=== PATIENT | male | born 1970 | race Two or more races ===

== ENCOUNTER 2017-11-06 02:45 | Emergency (ER) | payer SELFPAY ==
[2017-11-06] MEDS ORDERED: ASPIRIN 81 MG TABLET, CHEWABLE PO ONE (02:58)
[2017-11-06] MEDS ORDERED: AMIODARONE HCL INJ 150 MG/3 ML VIAL IV ONE (03:13)
[2017-11-06] MEDS ORDERED: ETOMIDATE INJ/PF 20 MG/10 ML SDV IV ONE (03:20)
[2017-11-06] MEDS ORDERED: MAGNESIUM SULFATE/D5W 2 GM/200 ML RTUPB IV ONE (03:30)
--- NOTE | 2017-11-06 03:36 | ER Document Report ---
ED General - General Chief Complaint: Chest Pain Stated Complaint: PACEMAKER FIRED Time Seen by Provider: 11/06/17 02:57 Notes: Patient is a 46-year-old male who presents with complaint of feeling his heart is racing. He says he has a history of arrhythmia. He has a pacemaker defibrillator in place. Patient says he has been shocked several times tonight. He therefore place a magnet over his chest. He says in the past he will be shocked over and over again but not convert until he receives medications. He just moved here 1 month ago from [place]. He says that he is on insulin for diabetes as well as blood pressure medication cholesterol medication. He says the medication he takes for his heart rhythm is bisoprolol. He says he is out of all of his medications except for the bisoprolol. He denies any recent fevers or infections. He had his pacemaker changed in May 2017. He is last heart cath was in 2012. His last attempt at ablation was in the spring 2016. He says ablation did not work. He has not established himself with a doctor in this area since moving here. He denies chest pain. His previous heart cath in 2012 showed no evidence of coronary disease. TRAVEL OUTSIDE OF THE U.S. IN LAST 30 DAYS: No - Related Data Allergies/Adverse Reactions: No Known Allergies Allergy (Unverified 11/06/17 02:50) Past Medical History - Social History Smoking Status: Unknown if Ever Smoked Frequency of alcohol use: None Drug Abuse: None Family History: Reviewed & Not Pertinent Review of Systems - Review of Systems Notes: My Normal Review Basic REVIEW OF SYSTEMS: CONSTITUTIONAL : Denies fever, chills, or sweats. Denies recent illness. EENT: Denies eye, ear, throat, or mouth pain or symptoms. Denies nasal or sinus congestion. CARDIOVASCULAR: Denies chest pain. RESPIRATORY: Denies cough, cold, or chest congestion. Denies shortness of breath, difficulty breathing, or wheezing. GASTROINTESTINAL: Denies abdominal pain. Denies nausea, vomiting, or diarrhea. Denies constipation. Last BM: GENITOURINARY: Denies difficulty urinating, painful urination, burning, frequency, or blood in urine. FEMALE GENITOURINARY: Denies vaginal bleeding, abnormal or irregular periods. LMP: MUSCULOSKELETAL: Denies neck or back pain or joint pain or swelling. SKIN: Denies rash or skin lesions. HEMATOLOGIC : Denies easy bruising or bleeding. LYMPHATIC: Denies swollen, enlarged glands. NEUROLOGICAL: Denies altered mental status or loss of consciousness. Denies headache. Denies weakness or paralysis or loss of use of either side. Denies problems with gait or speech. Denies sensory or motor loss. PSYCHIATRIC: Denies anxiety or stress or depression. ALL OTHER SYSTEMS REVIEWED AND NEGATIVE. Physical Exam - Vital signs Vitals: Pulse Ox 98 11/06/17 02:47 Course - Re-evaluation Re-evalutation: 11/06/17 03:34 Patient came in with wide-complex tachycardia. I did look through his records and some his records say he has SVT with aberrancy due to right bundle branch block. 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 He does have an AICD. He says it was viral and Therefore Pl., Albert on it. He refuses to allow us to take the mag and off. I informed him that he is in wide complex tachycardia with a rate around 200 and that this could be detrimental to his health and cause heart attack because restraint on his heart causing going to a further arrhythmia that does not have a perfusing pulse. Patient says he understands this but still refuses to take off the magnet and says that in the past either receives amiodarone or lidocaine and this usually stops his arrhythmia. He refuses to allow me to cardiovert him. I give the patient 150 mg of amiodarone. I then placed him on 1 mg/min drip. After the 150 mg bolus patient is still in wide-complex tachycardia. I informed patient that I would like to try cardioversion. Patient again was very resistant against this. I told him that I would sedate him for this. Patient is still resistant but eventually agreed to allow me to sedate him. I did sedate him with etomidate. I did remove the magnet. He was shocked. After being shocked he has about 4-5 normal beats and then goes right back into wide-complex tachycardia. Patient is awake now and does not want any further shocks at this time. I will give magnesium sulfate. If after the magnesium sulfate he does not have conversion then I will consult cardiology for further advice. Patient does not have chest pain. He says he feels okay. He says that he has no further concerns at this time. On exam he looks well his blood pressure is normal. His pulse to palpation is in the 90s. His heart rates in the 200s. 11/06/17 03:50 Patient is receiving magnesium. Heart rate is still around 190 and wide- complex tachycardia. Blood pressure still normal. I did speak with Dr. Holden informed him of the patient's history and the medications we have given him. He recommends I do give the patient a bolus of lidocaine. He says after that he suggested I call [facility] and try to transfer. 11/06/17 04:07 After the lidocaine bolus patient's heart rate is now in the 60s and the paced rhythm. His blood sugar on Accu-Chek is 599. I will place him on insulin drip until I see what his other results come back as. 11/06/17 04:47 I have called [facility], [facility], and [facility]. They are all on MedSurg diversion. [facility] says he could potentially put me on a wait list but they said it is not clear when they would ever have a bed available. I spoke with [facility], Dr. Josemanuel Altman. They seem to have the most promise intransfer and said they will accept the patient. They said the patient 's transfer might be delayed for a while until beds available but they have accepted the patient. I did call back Dr. Holden and informed him that the patient did convert but requested that he also evaluate the patient in consult being that the patient will most likely be in the ER for some time before he is able to be transferred. Dr. Holden is agreeable to this. 11/06/17 06:41 Patient's blood sugar continues to be trending down appropriately. He is not in DKA even though he does have some metabolic acidosis. I say he is not in DKA because he does not have a gap acidosis. I am using insulin drip just to slowly bring down his blood sugar. Once his blood sugars below 300. And some drip and that his blood sugars can be controlled with his Lantus. If his bed becomes available at [facility] we can stop the insulin drip at that time and just to subcu insulin which will be appropriate. The patient's rhythm remained stable at this time. I am awaiting Dr. Holden to come evaluate the patient this morning. Will base further antiarrhythmics of his recommendations. Patient is currently still on the amiodarone drip. The 6 hour infusion will be completed at 9:30 AM. - Vital Signs Vital signs: Temp Pulse Resp BP Pulse Ox 16 112/87 H 99 11/06/17 06:01 11/06/17 06:00 11/06/17 06:01 - Laboratory Result Diagrams: 11/06/17 03:30 11/06/17 03:30 Laboratory results interpreted by me: 11/06/17 11/06/17 11/06/17 03:30 03:30 05:33 MCH 26.9 L Sodium 129.9 L Carbon Dioxide 16 L Glucose 567 H* POC Glucose 474 H* Direct Bilirubin 0.6 H Alkaline Phosphatase 131 H - EKG Interpretation by Me Additional EKG results interpreted by me: 11/06/17 04:22 EKG is reviewed and interpreted by me. This EKG is post cardioversion for lidocaine. EKG shows neutral rhythm with rate of 96 bpm. Patient does have a wide-complex rhythm related to what appears to be right bundle branch block. I do not have an old EKG for comparison but I do have description of previous EKG on the patient's discharge summary which also describes right bundle branch block type pattern on his previous EKGs. W[place] interval is within normal range. QRS duration QTc intervals are prolonged. Procedures - Conscious Sedation procedural Prior complications: Procedural sedation Emergent conditions applies.: E. - ASA Classification Airway Evaluation: Normal anatomy Mallampati Classification: Class 1 Used during procedure: Suction available, IV access obtained, Pulse ox on pt., hand candle molder on pt. Medications administered: Etomidate Reversal agents: None I personally performed/intraservice time: Sedation, 30 min or less Complications: No Notes: Patient was given a total of 10 mg of etomidate for sedation for attempted cardioversion. Critical Care Note - Critical Care Note Total time excluding time spent on procedures (mins): 45 Comments: Critical care time for this patient is partly 45 minutes due to he being continuously bedside attempting to convert the patient from flex tachycardia as well as time spent speaking with training and development project leader. Discharge - Discharge Clinical Impression: Wide-complex tachycardia, Hyperglycemia Condition: Stable Disposition: [facility]
[2017-11-06 03:52] LABS: INTERNATIONAL RATION (INR) 0.83
[2017-11-06 03:54] LABS: ABSOLUTE BASOPHILS # (AUTO) 0.1 10^3/uL (0.0-0.2); ABSOLUTE EOSINOPHILS # (AUTO) 0.1 10^3/uL (0.0-0.6); ABSOLUTE LYMPHOCYTES (AUTO) 1.2 10^3/uL (0.5-4.7); ABSOLUTE MONOCYTES (AUTO) 0.4 10^3/uL (0.1-1.4); ABSOLUTE NEUT (AUTO) 2.7 10^3/uL (1.7-8.2); ALANINE AMINOTRANSFERASE 33 U/L (21-72); ALBUMIN 3.8 g/dL (3.5-5.0); ALKALINE PHOSPHATASE 131 U/L (38-126); ANION GAP 16 (5-19); ASPARTATE AMINO TRANSFERASE 19 U/L (17-59); BASOPHILS % (AUTO) 1.5 % (0-2); BILIRUBIN,DIRECT 0.6 mg/dL (0.0-0.4); BILIRUBIN,TOTAL 0.8 mg/dL (0.2-1.3); BLOOD UREA NITROGEN 10 mg/dL (7-20); CALCIUM 8.9 mg/dL (8.4-10.2); CARBON DIOXIDE 16 mmol/L (22-30); CHLORIDE 98 mmol/L (98-107); CREATINE KINASE 65 U/L (55-170); EOSINOPHILS % (AUTO) 2.8 % (0-6); HEMATOCRIT 43.5 % (37.9-51.0); MAGNESIUM 1.6 mg/dL (1.6-2.3); MEAN CORPUSCULAR VOLUME 80 fl (80-97); PLATELET COUNT 241 10^3/uL (150-450); POTASSIUM 4.1 mmol/L (3.6-5.0); RED BLOOD COUNT 5.43 10^6/uL (4.35-5.55); SEGMENTED NEUTROPHILS % (AUTO) 59.7 % (42-78); SODIUM 129.9 mmol/L (137-145); TOTAL CELLS COUNTED % (AUTO) 100 %; TOTAL PROTEIN 6.8 g/dL (6.3-8.2); WHITE BLOOD COUNT 4.6 10^3/uL (4.0-10.5)
[2017-11-06] MEDS ORDERED: LIDOCAINE 2% INJ-PF (100 MG/5 ML) SYRINGE ONE (03:54)
[2017-11-06] MEDS ORDERED: LIDOCAINE 2% INJ-PF (100 MG/5 ML) SYRINGE IV ONE (03:56)
[2017-11-06 04:07] LABS: HEMOGLOBIN 14.6 g/dL (13.5-17.0); MEAN CORPUSCULAR HEMOGLOBIN 26.9 pg (27.0-33.4); MEAN CORPUSCULAR HGB CONC 33.6 g/dL (32.0-36.0)
[2017-11-06] MEDS ORDERED: NORMAL SALINE 100 ML with INSULIN REGULAR, HUMAN 100 UNIT IV PRN ×2 (04:08)
[2017-11-06] MEDS ORDERED: DEXTROSE 40% GEL 15 GM TUBE PO PRN ×2 (04:08)
[2017-11-06] MEDS ORDERED: GLUCAGON,HUMAN RECOMB 1 MG INJ IM PRN (04:08)
[2017-11-06] MEDS ORDERED: DEXTROSE 50%-WATER 25 GM/50 ML DISP.SYRIN IV PRN ×2 (04:08)
--- NOTE | 2017-11-06 04:20 | RADIOLOGY REPORT (SQ) ---
EXAM DESCRIPTION: CHEST SINGLE VIEW COMPLETED DATE/TIME: 11/06/2017 4:10 am REASON FOR STUDY: CP COMPARISON: None. EXAM PARAMETERS: NUMBER OF VIEWS: One view. TECHNIQUE: Single frontal radiographic view of the chest acquired. RADIATION DOSE: NA LIMITATIONS: Superimposed monitoring devices/ pacemaker pads on the patient's chest. FINDINGS: LUNGS AND PLEURA: No consolidation, pleural effusion or pneumothorax at the visualized amanda gs. MEDIASTINUM AND HILAR STRUCTURES: No masses. Contour normal. HEART AND VASCULAR STRUCTURES: The heart is upper normal limit in size. No overt vascular congestion . BONES: No acute findings. HARDWARE: There is a left-sided pacemaker. Pacemaker pads are overlying the patient's chest. IMPRESSION: No acute radiographic finding in the visualized chest. TECHNICAL DOCUMENTATION: JOB ID: [id number] [employer]- All Rights Reserved
[2017-11-06] MEDS ORDERED: INSULIN LISPRO 100 UNIT/ML 3 ML VIAL SUBCUT ONE (04:30)
[2017-11-06 04:31] LABS: GLUCOSE 567 mg/dL (75-110)
[2017-11-06] MEDS ORDERED: INSULIN REG, HUMAN 100 UNIT/ML 3 ML VIAL (PYX) ONE (04:34)
[2017-11-06] MEDS ORDERED: NORMAL SALINE 500 ML IV ONE (04:39)
[2017-11-06 04:59] LABS: CREATINE KINASE MB 1.92 ng/mL (<4.55); TROPONIN I 0.015 ng/mL
--- NOTE | 2017-11-06 07:29 | EKG REPORT ---
SEVERITY:- ABNORMAL ECG - EXTREME TACHYCARDIA WITH WIDE COMPLEX, NO FURTHER RHYTHM ANALYSIS ATTEMPTED : Confirmed by: Kishan Castillo MD 06-Nov-2017 07:28:11
--- NOTE | 2017-11-06 07:29 | EKG REPORT ---
SEVERITY:- ABNORMAL ECG - ECTOPIC ATRIAL RHYTHM RIGHT BUNDLE BRANCH BLOCK : Confirmed by: Kishan Castillo MD 06-Nov-2017 07:27:46
--- NOTE | 2017-11-06 08:01 | ER Document Report ---
Doctor's Note Notes: 11/06/17 08:01 Transport is available at this time. Vital signs are stable. Patient stable at this time for immediate transfer.
[2017-11-06 09:45] VITALS: BP 116/90
[2017-11-06] MEDS ORDERED: FUROSEMIDE 20 MG TABLET PO SCH (10:00)
[2017-11-06] MEDS ORDERED: LISINOPRIL 10 MG TABLET PO SCH (10:00)
[2017-11-06] MEDS ORDERED: ATORVASTATIN CALCIUM 20 MG TABLET PO SCH (10:00)
[2017-11-06] MEDS ORDERED: INSULIN DETEMIR 100 UNIT/ML 3 ML PEN SUBCUT SCH (18:00)
== END 2017-11-06 08:20 | disposition short-term general hospital (02) ==
LOC: ER 02:45
PROC: 5A2204Z Restoration of Cardiac Rhythm, Single (ICD-10-PCS; principal; 2017-11-06)
DX: R00.0 Tachycardia, unspecified (principal); E11.65 Type 2 diabetes mellitus with hyperglycemia; R07.9 Chest pain, unspecified; I10 Essential (primary) hypertension; Z79.4 Long term (current) use of insulin; Z79.899 Other long term (current) drug therapy
CPT/HCPCS: 92960; 93005; 99291; 96361; 96375; 96365; 36415; 82553; 82962; 82550; 83735; 85025; 85610; 80053; 84484; 71045; 93010; J2001; J3475; J1815; J7040; J3490; J0282

== ENCOUNTER 2018-03-10 18:49 | Emergency (ER) | payer SELFPAY ==
--- NOTE | 2018-03-10 19:02 | ER Document Report ---
ED General - General Mode of Arrival: Medic Information source: Patient TRAVEL OUTSIDE OF THE U.S. IN LAST 30 DAYS: No <SARAI DAVIS - Last Filed: 03/10/18 22:10> <SUSU PATRICK - Last Filed: 03/11/18 03:07> - General Stated Complaint: IRREGULAR HEARTBEAT Notes: 47 y.o male with HTN, DM and a Hx of cardiac ablation and pacemaker defibrillator placement presents to the ED anxiety and a beeping defibrillator. Pt reports that he has had a pacemaker since 2012 which was originally placed in [place] and then replaced in May 2017 by his doctor in [place]. Pt was seen here in November this year for his pacemaker firing and then was seen in [place] by a qa test lead. Pt has since been placed on DM medications by his doctor in [place] and pt reports that he has been taking his DM medications as prescribed. Pt reports that his defribillator has made two long beeps today but did not shock him. He states that before the defibrillator beeped he started to get some anxiety and his heart was racing which usually happens before he gets shocked. Pt has no further complaints at this time, he denies any other sx including CP. Pt does not have a PCP. (SARAI DAVIS) - Related Data Allergies/Adverse Reactions: No Known Allergies Allergy (Verified 03/10/18 19:06) Past Medical History - General Information source: Patient - Social History Family History: Reviewed & Not Pertinent - Past Medical History Cardiac Medical History: Reports: Hx Hypertension, Other - Cardiac ablation Endocrine Medical History: Reports: Hx Diabetes Mellitus Type 2 Renal/ Medical History: Denies: Hx Peritoneal Dialysis Past Surgical History: Reports: Hx Cardiac Catheterization - 2012, Hx Pacemaker - defibrillator, Other - Cardiac ablation <SARAI DAVIS - Last Filed: 03/10/18 22:10> - Social History Smoking Status: Unknown if Ever Smoked <SUSU PATRICK - Last Filed: 03/11/18 03:07> Review of Systems - Review of Systems Constitutional: No symptoms reported EENT: No symptoms reported Cardiovascular: See HPI, Heart racing, Other - pacemaker firing. denies: Chest pain Respiratory: No symptoms reported Gastrointestinal: No symptoms reported Genitourinary: No symptoms reported Male Genitourinary: No symptoms reported Musculoskeletal: No symptoms reported Skin: No symptoms reported Hematologic/Lymphatic: No symptoms reported Neurological/Psychological: See HPI, Anxiety -: Yes All other systems reviewed and negative <SARAI DAVIS - Last Filed: 03/10/18 22:10> Physical Exam <SARAI DAVIS - Last Filed: 03/10/18 22:10> <SUSU PATRICK - Last Filed: 03/11/18 03:07> - Vital signs Vitals: Resp Pulse Ox 17 96 03/10/18 18:53 03/10/18 18:53 - Notes Notes: Physical Exam: General: Alert, appears well. HEENT: Normocephalic. Atraumatic. PERRL. Extraocular movements intact. Oropharynx clear. Neck: Supple. Non-tender. Respiratory: No respiratory distress. Clear and equal breath sounds bilaterally. Cardiovascular: Magnet over defibrillator. Abdominal: Normal Inspection. Non-tender. No distension. Normal Bowel Sounds. Back: Non-tender. No deformity or step off. Extremities: Moves all four extremities. Upper extremities: Normal inspection. Normal ROM. Lower extremities: Normal inspection. No edema. Normal ROM. Neurological: Normal cognition. AAOx3. Normal speech. Psychological: Normal affect. Normal Mood. Skin: Warm. Dry. Normal color. (SARAI DAVIS) Course - Laboratory Result Diagrams: 03/10/18 18:53 03/10/18 18:53 <SARAI DAVIS - Last Filed: 03/10/18 22:10> - Laboratory Result Diagrams: 03/10/18 18:53 03/10/18 18:53 <SUSU PATRICK - Last Filed: 03/11/18 03:07> - Re-evaluation Re-evalutation: 03/10/18 19:33 Talked with [employer] concerning defibrillator 03/10/18 21:41 Called [facility]. (SARAI DAVIS) Patient is a 47-year-old male who came in because his pacemaker defibrillator was beeping. Pacemaker was interrogated with no events and no concerns. Patient has been in a sinus rhythm not paced since he has been in the emergency department. Blood work including troponin 2 is negative. Discussed with cardiology, Dr. Moreno at [facility] who agrees the patient is stable at this time to go home. Patient would like to go home. Return if any further concerns. Stable for discharge. (SUSU PATRICK) - Vital Signs Vital signs: Temp Pulse Resp BP Pulse Ox 98.4 F 11 L 136/86 H 94 03/11/18 00:01 03/11/18 00:01 03/11/18 00:01 03/11/18 00:01 - Laboratory Laboratory results interpreted by me: 03/10/18 03/10/18 18:53 18:53 MCV 79 L RDW 14.8 H Glucose 202 H Discharge <SARAI DAVIS - Last Filed: 03/10/18 22:10> <SUSU PATRICK - Last Filed: 03/11/18 03:07> - Discharge Clinical Impression: Encounter for interrogation of cardiac pacemaker Condition: Stable Disposition: HOME, SELF-CARE Instructions: Pacemaker Evaluation ([facility]) Additional Instructions: Please follow-up with your qa test lead as scheduled this week. Lianeibe Attestation: 03/11/18 03:07 I personally performed the services described in the documentation, reviewed and edited the documentation which was dictated to the scribe in my presence, and it accurately records my words and actions. (SUSU PATRICK) Scribe Documentation - Scribe Written by Jacques:: Jacques Chau 03/10/[id number] acting as scribe for :: Chloe <SARAI DAVIS - Last Filed: 03/10/18 22:10>
[2018-03-10 19:19] LABS: INTERNATIONAL RATION (INR) 0.94
[2018-03-10 19:30] LABS: ALANINE AMINOTRANSFERASE 35 U/L (21-72); ALBUMIN 4.2 g/dL (3.5-5.0); ALKALINE PHOSPHATASE 66 U/L (38-126); ANION GAP 9 (5-19); ASPARTATE AMINO TRANSFERASE 25 U/L (17-59); BILIRUBIN,DIRECT 0.4 mg/dL (0.0-0.4); BILIRUBIN,TOTAL 0.6 mg/dL (0.2-1.3); BLOOD UREA NITROGEN 19 mg/dL (7-20); CALCIUM 9.6 mg/dL (8.4-10.2); CARBON DIOXIDE 29 mmol/L (22-30); CHLORIDE 102 mmol/L (98-107); CREATINE KINASE 156 U/L (55-170); GLUCOSE 202 mg/dL (75-110); POTASSIUM 4.8 mmol/L (3.6-5.0); SODIUM 140.2 mmol/L (137-145); TOTAL PROTEIN 6.9 g/dL (6.3-8.2)
--- NOTE | 2018-03-10 19:30 | RADIOLOGY REPORT (SQ) ---
EXAM DESCRIPTION: CHEST SINGLE VIEW COMPLETED DATE/TIME: 03/10/2018 7:24 pm REASON FOR STUDY: CP COMPARISON: 11/06/2017 EXAM PARAMETERS: NUMBER OF VIEWS: One view. TECHNIQUE: Single frontal radiographic view of the chest acquired. RADIATION DOSE: NA LIMITATIONS: None. FINDINGS: LUNGS AND PLEURA: No new opacities, masses or pneumothorax. No pleural effusion. MEDIASTINUM AND HILAR STRUCTURES: No masses. Contour normal. HEART AND VASCULAR STRUCTURES: Heart stable in size. Normal vasculature. BONES: No acute findings. HARDWARE: Stable. OTHER: No other significant finding. IMPRESSION: NO ACUTE RADIOGRAPHIC FINDING IN THE CHEST. NO SIGNIFICANT CHANGE FROM PRIOR STUDY. TECHNICAL DOCUMENTATION: JOB ID: [id number] [employer]- All Rights Reserved Reading location - IP/workstation name: [email or web address]
[2018-03-10 19:31] LABS: HEMATOCRIT 41.3 % (37.9-51.0); HEMOGLOBIN 14.8 g/dL (13.5-17.0); MEAN CORPUSCULAR HEMOGLOBIN 28.2 pg (27.0-33.4); MEAN CORPUSCULAR HGB CONC 35.9 g/dL (32.0-36.0); MEAN CORPUSCULAR VOLUME 79 fl (80-97); PLATELET COUNT 239 10^3/uL (150-450); RED BLOOD COUNT 5.26 10^6/uL (4.35-5.55); RED CELL DISTRIBUTION WIDTH 14.8 % (11.5-14.0); WHITE BLOOD COUNT 5.7 10^3/uL (4.0-10.5)
[2018-03-10 19:42] LABS: CREATINE KINASE MB 2.68 ng/mL (<4.55); TROPONIN I < 0.012 ng/mL
[2018-03-10 19:54] LABS: ABSOLUTE LYMPHOCYTES# (MANUAL) 1.5 10^3/uL (0.5-4.7); ABSOLUTE MONOCYTES # (MANUAL) 0.6 10^3/uL (0.1-1.4); ABSOLUTE NEUTROPHILS# (MANUAL) 3.4 10^3/uL (1.7-8.2); BASOPHILS % (MANUAL) 0 % (0-2); EOSINOPHILS % (MANUAL) 3 % (0-6); LYMPHOCYTES % (MANUAL) 27 % (13-45); MONOCYTES % (MANUAL) 11 % (3-13); SEGMENTED NEUTROPHILS % (MAN) 59 % (42-78); TOTAL CELLS COUNTED 100
[2018-03-10 19:55] LABS: ANISOCYTOSIS SLIGHT; PLATELET COMMENT ADEQUATE; TOXIC GRANULATION SLIGHT
[2018-03-11 00:26] VITALS: BP 136/86
--- NOTE | 2018-03-11 08:14 | EKG REPORT ---
SEVERITY:- ABNORMAL ECG - SINUS RHYTHM FIRST DEGREE AV BLOCK LEFT BUNDLE BRANCH BLOCK : Confirmed by: Lakeshia Saenz MD 11-Mar-2018 08:13:49
== END 2018-03-11 00:26 | disposition home or self-care (01) ==
LOC: ER 18:49
DX: Z45.018 Encounter for adjustment and management of other part of cardiac pacemaker (principal); F41.9 Anxiety disorder, unspecified; E11.9 Type 2 diabetes mellitus without complications; I10 Essential (primary) hypertension; Z79.899 Other long term (current) drug therapy
CPT/HCPCS: 36415; 71045; 80053; 82550; 82553; 84484; 85025; 85610; 93005; 93010; 99285

== ENCOUNTER 2019-11-15 20:07 | Emergency (ER) | payer SELFPAY ==
[2019-11-15 21:02] LABS: ABSOLUTE EOSINOPHILS # (AUTO) 0.3 10^3/uL (0.0-0.6); ABSOLUTE LYMPHOCYTES (AUTO) 1.1 10^3/uL (0.5-4.7); ABSOLUTE MONOCYTES (AUTO) 0.4 10^3/uL (0.1-1.4); ABSOLUTE NEUT (AUTO) 3.6 10^3/uL (1.7-8.2); BASOPHILS % (AUTO) 0.7 % (0-2); EOSINOPHILS % (AUTO) 4.7 % (0-6); HEMATOCRIT 42.2 % (37.9-51.0); HEMOGLOBIN 14.9 g/dL (13.5-17.0); LYMPHOCYTES % (AUTO) 20.1 % (13-45); MEAN CORPUSCULAR HGB CONC 35.3 g/dL (32.0-36.0); MEAN CORPUSCULAR VOLUME 79 fl (80-97); MONOCYTES % (AUTO) 8.1 % (3-13); PLATELET COUNT 196 10^3/uL (150-450); RED BLOOD COUNT 5.33 10^6/uL (4.35-5.55); RED CELL DISTRIBUTION WIDTH 15.1 % (11.5-14.0); SEGMENTED NEUTROPHILS % (AUTO) 66.4 % (42-78); TOTAL CELLS COUNTED % (AUTO) 100 %; WHITE BLOOD COUNT 5.4 10^3/uL (4.0-10.5)
[2019-11-15 21:17] LABS: ALBUMIN 4.2 g/dL (3.5-5.0); ALKALINE PHOSPHATASE 114 U/L (38-126); ANION GAP 13 (5-19); ASPARTATE AMINO TRANSFERASE 27 U/L (17-59); BILIRUBIN,DIRECT 0.2 mg/dL (0.0-0.4); BILIRUBIN,TOTAL 1.1 mg/dL (0.2-1.3); BLOOD UREA NITROGEN 17 mg/dL (7-20); CALCIUM 9.3 mg/dL (8.4-10.2); CARBON DIOXIDE 24 mmol/L (22-30); CHLORIDE 98 mmol/L (98-107); CREATINE KINASE 68 U/L (55-170); POTASSIUM 4.7 mmol/L (3.6-5.0); TOTAL PROTEIN 7.1 g/dL (6.3-8.2)
[2019-11-15 21:28] LABS: CREATINE KINASE MB 2.19 ng/mL (<4.55)
--- NOTE | 2019-11-15 21:32 | RADIOLOGY REPORT (SQ) ---
EXAM DESCRIPTION: [employer]: XR CHEST 1 VIEW CLINICAL HISTORY: 48 years Male; cp; COMPARISON: 03/10/2018 FINDINGS: Lungs are clear, with no focal infiltrate, pneumothorax, or pleural effusion. AICD remains in place with intact leads. Mediastinum is unchanged. No shift or widening. Bony structures are unremarkable. IMPRESSION: 1. No acute pulmonary findings. 2. AICD
[2019-11-15 21:35] LABS: GLUCOSE 416 mg/dL (75-110)
[2019-11-15 21:36] LABS: TROPONIN I < 0.012 ng/mL
[2019-11-15] MEDS ORDERED: NORMAL SALINE 1000 ML 1,000 ML IV ONE (21:37)
[2019-11-15] MEDS ORDERED: INSULIN REG, HUMAN 100 UNIT/ML 3 ML VIAL (PYX) IV ONE (21:38)
[2019-11-15] MEDS ORDERED: VANCOMYCIN HCL INJ 1000 MG VIAL IV ONE (21:42)
[2019-11-15] MEDS ORDERED: CEFEPIME 2 GM/D5W RTU 2 GM/50 ML RTUPB IV ONE (21:42)
[2019-11-15] MEDS ORDERED: DEXTROSE 5%-WATER 500 ML with AMIODARONE HCL 900 MG IV PRN ×2 (21:57)
[2019-11-15] MEDS ORDERED: AMIODARONE HCL INJ 150 MG/3 ML VIAL IV ONE (22:13)
--- NOTE | 2019-11-15 22:19 | ER Document Report ---
ED Cardiac - General Chief Complaint: Chest Pain Stated Complaint: POSSIBLE V TACH Time Seen by Provider: 11/15/19 21:01 Primary Care Provider: TOMAS TRUJILLO MD [Primary Care Provider] - Follow up as needed Mode of Arrival: Medic Information source: Patient TRAVEL OUTSIDE OF THE U.S. IN LAST 30 DAYS: No - HPI Notes: Patient presents tonight by ambulance after an episode of an arrhythmia. Patient states that several times throughout the day he felt "dizzy". And had some palpitations. He states that while washing dishes he was feeling his "heart flutter" and received a shock. He states he then used a magnet to turn off his defibrillator and called the ambulance. The ambulance crew state they found the patient with a heart rate of approximately 220 and that they started amiodarone and had the patient do a Valsalva and that the patient converted to a sinus rhythm. The patient also states after he was shocked he had some chest pain that was on the left side. It was moderate. He does not usually get this pain after being shocked. It lasted until he was given nitroglycerin by the paramedics and then it went away. He had no shortness of breath nausea or vomiting tonight. He states he currently has no pain. This pain did not radiate. - Related Data Allergies/Adverse Reactions: No Known Allergies Allergy (Verified 03/10/18 19:06) Past Medical History - General Information source: Patient - Social History Smoking Status: Former Smoker Frequency of alcohol use: None Drug Abuse: None Family History: Reviewed & Not Pertinent Patient has suicidal ideation: No Patient has homicidal ideation: No - Past Medical History Cardiac Medical History: Reports: Hx Congestive Heart Failure, Hx H ypercholesterolemia, Hx Hypertension Endocrine Medical History: Reports: Hx Diabetes Mellitus Type 2 Renal/ Medical History: Denies: Hx Peritoneal Dialysis Past Surgical History: Reports: Hx Cardiac Catheterization - 2012, Hx Cardiac Surgery - pacemaker/defib, Hx Pacemaker - defibrillator, Other - Cardiac ablation Review of Systems - Review of Systems Constitutional: denies: Chills, Fever Cardiovascular: Chest pain, Palpitations Respiratory: denies: Cough, Wheezing -: Yes All other systems reviewed and negative Physical Exam - Vital signs Vitals: Resp Pulse Ox 20 94 11/15/19 20:11 11/15/19 20:11 Interpretation: Normal - General General appearance: Appears well, Alert - HEENT Head: Normocephalic, Atraumatic Eyes: Normal Pupils: PERRL - Respiratory Respiratory status: No respiratory distress Chest status: Nontender Breath sounds: Normal Chest palpation: Normal - Cardiovascular Rhythm: Regular Heart sounds: Normal auscultation Murmur: No - Abdominal Inspection: Normal Distension: No distension Bowel sounds: Normal Tenderness: Nontender Organomegaly: No organomegaly - Back Back: Normal, Nontender - Extremities General upper extremity: Normal inspection, Nontender, Normal color, Normal ROM, Normal temperature General lower extremity: Normal inspection, Nontender, Normal color, Normal ROM, Normal temperature, Normal weight bearing. No: Pola's sign - Neurological Neuro grossly intact: Yes Cognition: Normal Orientation: AAOx4 [place] Coma Scale Eye Opening: Spontaneous [place] Coma Scale Verbal: Oriented [place] Coma Scale Motor: Obeys Commands [place] Coma Scale Total: 15 Speech: Normal Motor strength normal: LUE, RUE, LLE, RLE Sensory: Normal - Psychological Associated symptoms: Normal affect, Normal mood - Skin Skin Temperature: Warm Skin Moisture: Moist Skin Color: Normal Course - Re-evaluation Re-evalutation: 11/15/19 22:15 Patient presents after being defibrillated. The [employer] she states that the patient was in V. tach when the defibrillator shocked him. Medics also felt that the patient was in V. tach. However patient does have a history of atrial fibrillation and a right bundle branch block so it is possible that it was A. fib with a block. Patient currently has no chest pain and is hemodynamically stable. Patient is a [facility] cardiology patient. I made substantial efforts to transfer the patient to [facility] but they are unable to accept the patient currently. Patient will be transferred divided. Patient is currently on amiodarone drip and chest pain-free. He is hemodynamically stable at this time. 11/15/19 22:22 - Vital Signs Vital signs: Temp Pulse Resp BP Pulse Ox 98.7 F 86 15 122/87 H 97 11/15/19 21:01 11/15/19 20:13 11/15/19 21:01 11/15/19 21:01 11/15/19 21:01 - Laboratory Result Diagrams: 11/15/19 20:45 11/15/19 20:45 Laboratory results interpreted by me: 11/15/19 11/15/19 20:45 20:45 MCV 79 L RDW 15.1 H Sodium 134.5 L Creatinine 0.51 L Glucose 416 H* - Diagnostic Test Radiology reviewed: Image reviewed, Reports reviewed - EKG Interpretation by Me EKG shows normal: Sinus rhythm Rate: Normal - 86 Rhythm: NSR [place]/QRS: RBBB Discharge - Discharge Clinical Impression: Ventricular tachycardia, Hyperglycemia Condition: Stable Disposition: [facility] Referrals: TOMAS TRUJILLO MD [Primary Care Provider] - Follow up as needed
[2019-11-16 06:57] VITALS: BP 140/94
--- NOTE | 2019-11-16 07:06 | ER Document Report ---
Doctor's Note Notes: 11/16/19 07:03 [facility] had called and stated there would be no ground transportation available for quite some time, but did offer air transport. The weather after my phone indicates rain will be coming into this area soon so this is a narrow window to get the patient transferred to an appropriate facility to manage his pacemaker problems. 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 His vital signs were stable with a pulse of 70 and a blood pressure of 140/94. He is stable for transfer at this time, he is being loaded into the helicopter at this time.
--- NOTE | 2019-11-16 07:12 | EKG REPORT ---
SEVERITY:- ABNORMAL ECG - SINUS RHYTHM FIRST DEGREE AV BLOCK RIGHT BUNDLE BRANCH BLOCK AND LEFT ANTERIOR FASCICULAR BLOCK : Confirmed by: Kishan Castillo MD 16-Nov-2019 07:11:22
== END 2019-11-16 06:57 | disposition short-term general hospital (02) ==
LOC: ER 20:07
DX: I47.2 Ventricular tachycardia (principal); E11.65 Type 2 diabetes mellitus with hyperglycemia; R07.9 Chest pain, unspecified; R42 Dizziness and giddiness; I50.9 Heart failure, unspecified; E78.00 Pure hypercholesterolemia, unspecified; I11.0 Hypertensive heart disease with heart failure; Z95.810 Presence of automatic (implantable) cardiac defibrillator
CPT/HCPCS: 93005; 36415; 82553; 82962; 82550; 85025; 80053; 84484; 71045; 93010; J1815; J7060; J7030; J0282